=== PATIENT | female | born 1970 | race Caucasian/White ===

== ENCOUNTER → 2020-03-01 | Outpatient (CLI) | payer OTHER | END | disposition home or self-care (01) | LOC: LAB 10:57 | PROVIDERS: ATTEND Internal Medicine Pulmonary Disease | DX: Z20.828 Contact with and (suspected) exposure to other viral communicable diseases (principal) | CPT/HCPCS: 36415; 99001; U0001 ==

== ENCOUNTER 2020-06-01 02:51 | Emergency (ER) | payer OTHER ==
[~2020-06-01] VITALS: Ht 175.3 cm; Wt 202.0 kg
--- NOTE | 2020-06-01 03:15 | PHYS DOC ---
General Adult EDM: Chief Complaint: ABDOMINAL PAIN HPI: HPI: Patient is a 50 year old female presents with the chief complaint of right upper quadrant abdominal pain. Onset of symptoms yesterday. Right upper quadrant is tender to palpation and abdomen is distended. Initial associated symptoms included nausea and vomiting with diarrhea starting tonight. Past surgical history include cystectomy, appendectomy, and hysterectomy. Review of Systems: Review of Systems: Constitutional: Denies fever or chills. [] Eyes: Denies change in visual acuity. [] HENT: Denies nasal congestion or sore throat. [] Respiratory: Denies cough or shortness of breath. [] Cardiovascular: Denies chest pain or edema. [] GI: Positive abdominal pain positive nausea positive vomiting positive diarr hea : Denies dysuria. [] Musculoskeletal: Positive abdominal pain positive denies musculoskeletal pain Integument: Denies rash. [] Neurologic: Denies headache, focal weakness or sensory changes. [] Endocrine: Denies polyuria or polydipsia. [] Lymphatic: Denies swollen glands. [] Psychiatric: Denies depression or anxiety. [] Heart Score: Risk Factors: Risk Factors: DM, Current or recent (<one month) smoker, HTN, HLP, family history of CAD, obesity. Risk Scores: Score 0 - 3: 2.5% MACE over next 6 weeks - Discharge Home Score 4 - 6: 20.3% MACE over next 6 weeks - Admit for Clinical Observation Score 7 - 10: 72.7% MACE over next 6 weeks - Early Invasive Strategies Current Medications: Current Medications Medications (Trade) Dose Ordered Sig/Tim Start Time Stop Time Status Last Admin Dose Admin Ondansetron HCl (Zofran) 4 mg 1X ONCE 06/01/20 03:00 06/01/20 03:01 UNV Physical Exam: PE: Constitutional: Well developed, well nourished, no acute distress, mild-toxic appearance. [] HENT: Normocephalic, atraumatic, bilateral external ears normal, nose normal. [] Eyes: EOMI, conjunctiva normal, no discharge. [] Neck: Normal range of motion, Cardiovascular:Heart rate regular rhythm, Lungs & Thorax: No respiratory distress Abdomen: soft, tenderness to palpation right upper quadrant, Skin: Warm, dry, no erythema, no rash. [] Back: Normal range of motion Extremities: No tenderness, no cyanosis, no clubbing, ROM intact Neurologic: Alert and oriented X 3, normal motor function, normal sensory function, no focal deficits noted. [] Psychologic: Affect normal, judgement normal, mood normal. [] EKG: EKG: [] Radiology/Procedures: Radiology/Procedures: [] Impression: ]IMPRESSION: 1. Previous cholecystectomy. 2. Left intrarenal calculus, no ureteral calculus or hydronephrosis. 3. Mild wall thickening of the colon possible colitis. 4. Diverticulosis without acute diverticulitis. 5. No small bowel obstruction. Course & Med Decision Making: Course & Med Decision Making Pertinent Labs and Imaging studies reviewed. (See chart for details) []All reseults discussed with patient. Treatment with bently and zofran with improvement. Will discharge home on bentyl, cipro, flagyl, zofran Dragon Disclaimer: Shahana Disclaimer: This electronic medical record was generated, in whole or in part, using a voice recognition dictation system. Departure Departure Impression: Primary Impression: Colitis Disposition: 01 HOME, SELF-CARE Condition: STABLE Referrals: VINCENZO DOBBINS (PCP) Patient Instructions: Colitis Scripts Ondansetron Hcl (ZOFRAN) 4 Mg Tablet 1 TAB PO Q6HRS, #20 TAB Prov: MEGHNA MEADOWS I DO 06/01/20 Ciprofloxacin Hcl (CIPRO) 500 Mg Tablet 1 TAB PO BID for 7 Days, #14 TAB 0 Refills Prov: MEGHNA MEADOWS I DO 06/01/20 Metronidazole (FLAGYL) 500 Mg Tablet 1 TAB PO BID, #14 TAB Prov: MEGHNA MEADOWS I DO 06/01/20 Dicyclomine Hcl (DICYCLOMINE HCL) 20 Mg Tablet 20 MG PO QID, #20 TAB Prov: MEGHNA MEADOWS I DO 06/01/20 Justicifation of Admission Dx: Justifications for Admission: Justification of Admission Dx: N/A MEGHNA MEADOWS DO Jun 01, 2020 03:15
[2020-06-01 03:25] LABS: BASO % 0 % (0-3); EOS % 0 % (0-3); HEMATOCRIT 40.5 % (36.0-47.0); HEMOGLOBIN 13.9 g/dL (12.0-15.5); LYMPH # 2.6 x10^3/uL (1.0-4.8); LYMPH % 34 % (24-48); MEAN CORPUSCULAR HEMOGLOBIN 30 pg (25-35); MEAN CORPUSCULAR HGB CONC 34 g/dL (31-37); MEAN CORPUSCULAR VOLUME 88 fL (79-100); MONO # 0.4 x10^3/uL (0.0-1.1); MONO % 6 % (0-9); NEUT # 4.5 x10^3/uL (1.8-7.7); NEUT % 59 % (31-73); PLATELET COUNT 210 x10^3/uL (140-400); RED CELL DISTRIBUTION WIDTH 13.6 % (11.5-14.5); WHITE BLOOD COUNT 7.5 x10^3/uL (4.0-11.0)
[2020-06-01 03:33] LABS: CALCIUM 8.9 mg/dL (8.5-10.1); CREATININE 0.9 mg/dL (0.6-1.0); GFR 66.8; POTASSIUM 3.8 mmol/L (3.5-5.1)
[2020-06-01 03:38] LABS: ALBUMIN 4.1 g/dL (3.4-5.0); ALBUMIN/GLOBULIN RATIO 1.5 (1.0-1.7); TOTAL BILIRUBIN 0.4 mg/dL (0.2-1.0); TOTAL PROTEIN 6.8 g/dL (6.4-8.2)
[2020-06-01] MEDS ORDERED: CONTRAST GIVEN. MC PRN (03:45)
[2020-06-01] MEDS ORDERED: ONDANSETRON PF 4 MG/2 ML VIAL. IVP ONE ×2 (04:00)
[2020-06-01] MEDS ORDERED: DICYCLOMINE 20 MG/2 ML VIAL. IM ONE (04:00)
[2020-06-01] MEDS ORDERED: IV NORMAL SALINE 1000ML BAG 1,000 ML IV ONE (04:00)
[2020-06-01] MEDS ORDERED: IOHEXOL 300 MG/ML 100ML VIAL. IV ONE (04:00)
--- NOTE | 2020-06-01 04:24 | RAD ---
CT abdomen pelvis with contrast. HISTORY: Right upper quadrant abdominal pain CT scan the abdomen pelvis was done using 75 mL Omnipaque 300 contrast. Lung bases are clear. There is no effusion. Liver is normal in appearance. Patient's had a cholecystectomy. Spleen and adrenal glands are normal. A pancreatic lesion is not identified. There is no mass or hydronephrosis in the kidneys. There is a 4 mm calculus in the lower left kidney. A ureteral calculus is not identified. There is no adenopathy. Small bowel pattern is normal. Patient's had a hysterectomy. There is wall thickening of the colon possible colitis. There is diverticulosis of the colon without diverticulitis. There is degenerative disc disease in the lower lumbar spine. The appendix is not identified. IMPRESSION: 1. Previous cholecystectomy. 2. Left intrarenal calculus, no ureteral calculus or hydronephrosis. 3. Mild wall thickening of the colon possible colitis. 4. Diverticulosis without acute diverticulitis. 5. No small bowel obstruction. PQRS Compliance Statement: One or more of the following individualized dose reduction techniques were utilized for this examination: 1. Automated exposure control 2. Adjustment of the mA and/or kV according to patient size 3. Use of iterative reconstruction technique Electronically signed by: Eddie Lira MD (06/01/2020 4:21 AM) [id number]
[2020-06-01 04:42] LABS: BILIRUBIN,URINE NEGATIVE (NEG); CLARITY,URINE CLEAR; COLOR,URINE YELLOW; NITRITE,URINE NEGATIVE (NEG); PROTEIN,URINE NEGATIVE (NEG-TRACE); UROBILINOGEN,URINE 0.2 mg/dL (0.2 mg/dL)
[2020-06-01 04:49] LABS: SQUAMOUS EPITHELIAL CELL,UR MOD /LPF
[2020-06-01 04:50] LABS: AMORPHOUS SEDIMENT,UR PRESENT /HPF; BACTERIA,URINE MODERATE /HPF (0-FEW)
[2020-06-01] MEDS ORDERED: CIPR500T94 PO (04:56)
[2020-06-01] MEDS ORDERED: ONDA4TAB7 PO (04:56)
[2020-06-01] MEDS ORDERED: METR500T PO (04:56)
[2020-06-01] MEDS ORDERED: DICY20TA3 PO (04:56)
[2020-06-01 05:29] VITALS: BP 105/55
== END 2020-06-01 06:11 | disposition home or self-care (01) ==
LOC: ER 02:51
DX: K52.9 Noninfective gastroenteritis and colitis, unspecified (principal); Z90.89 Acquired absence of other organs; Z90.710 Acquired absence of both cervix and uterus; Z90.6 Acquired absence of other parts of urinary tract
CPT/HCPCS: 36415; 74177; 80053; 81001; 83690; 85025; 87086; 96361; 96372; 96374; 96376; 99285; J0500; J2405; J7030; Q9967

== ENCOUNTER → 2020-09-27 | Outpatient (CLI) | payer OTHER ==
[~2020-09-27] MED LIST: CIPR500T94 PO; DICY20TA3 PO; METR500T PO; ONDA4TAB7 PO
== END ==
LOC: LAB 18:20
PROVIDERS: ATTEND Internal Medicine Pulmonary Disease
DX: R05 Cough (principal); R09.81 Nasal congestion; Z20.828 Contact with and (suspected) exposure to other viral communicable diseases
CPT/HCPCS: U0003

== ENCOUNTER 2020-11-29 05:54 | Emergency (ER) | payer OTHER ==
[~2020-11-29] VITALS: Ht 175.3 cm; Wt 90.0 kg
--- NOTE | 2020-11-29 05:58 | ED.ADGEN ---
Past Medical History Past Medical History: Anxiety, Gallstones Additional Past Medical Histor: ADHD, NECROSIS IN HIPS Past Surgical History: Appendectomy, Cholecystectomy, , Hysterectomy, Tonsillectomy Additional Past Surgical Histo: BX HAND GANGLION CYST REMOVAL, PARTIAL OO PHORECTOMY, ABD WALL RESECTION Smoking Status: Current Some Day Smoker Alcohol Use: Rarely General Adult EDM: Chief Complaint: RIB PAIN HPI: HPI: Patient is a 50 year old [f__sex] who presents with [] Review of Systems: Review of Systems: Constitutional: Denies fever or chills. [] Eyes: Denies change in visual acuity. [] HENT: Denies nasal congestion or sore throat. [] Respiratory: Denies cough or shortness of breath. [] Cardiovascular: Denies chest pain or edema. [] GI: Denies abdominal pain, nausea, vomiting, bloody stools or diarrhea. [] : Denies dysuria. [] Musculoskeletal: Denies back pain or joint pain. [] Integument: Denies rash. [] Neurologic: Denies headache, focal weakness or sensory changes. [] Endocrine: Denies polyuria or polydipsia. [] Lymphatic: Denies swollen glands. [] Psychiatric: Denies depression or anxiety. [] Allergies: Allergies: Allergies Coded Allergies Type Severity Reaction Last Updated Verified theophylline Allergy Severe 06/01/20 Yes NSAIDS (Non-Steroidal Anti-Inflamma Allergy Intermediate 06/01/20 Yes clarithromycin Allergy Intermediate 06/01/20 Yes codeine Allergy Intermediate 06/01/20 Yes morphine Allergy Intermediate 06/01/20 Yes Physical Exam: PE: Constitutional: Well developed, well nourished, no acute distress, non-toxic appearance. [] HENT: Normocephalic, atraumatic, bilateral external ears normal, oropharynx moist, no oral exudates, nose normal. [] Eyes: PERRLA, EOMI, conjunctiva normal, no discharge. [] Neck: Normal range of motion, no tenderness, supple, no stridor. [] Cardiovascular:Heart rate regular rhythm, no murmur [] Lungs & Thorax: Bilateral breath sounds clear to auscultation [] Abdomen: Bowel sounds normal, soft, no tenderness, no masses, no pulsatile masses. [] Skin: Warm, dry, no erythema, no rash. [] Back: No tenderness, no CVA tenderness. [] Extremities: No tenderness, no cyanosis, no clubbing, ROM intact, no edema. [] Neurologic: Alert and oriented X 3, normal motor function, normal sensory function, no focal deficits noted. [] Psychologic: Affect normal, judgement normal, mood normal. [] Current Patient Data: Vital Signs: Vital Signs Date Time Temp Pulse Resp B/P (MAP) Pulse Ox O2 Delivery O2 Flow Rate FiO2 11/29/20 06:08 98.1 79 16 131/88 (102) 96 Room Air 98.1 EKG: EKG: [] Heart Score: Risk Factors: Risk Factors: DM, Current or recent (<one month) smoker, HTN, HLP, family history of CAD, obesity. Risk Scores: Score 0 - 3: 2.5% MACE over next 6 weeks - Discharge Home Score 4 - 6: 20.3% MACE over next 6 weeks - Admit for Clinical Observation Score 7 - 10: 72.7% MACE over next 6 weeks - Early Invasive Strategies Radiology/Procedures: Radiology/Procedures: [][facility] [address] [place] [address] IMAGING REPORT Signed PATIENT: FROY VÁSQUEZ ACCOUNT: [id number] : 1970 LOCATION: ER AGE: 50 SEX: F EXAM STATUS: REG ER ORD. PHYSICIAN: LEIDA HANSON DO REASON: trauma/right sided PROCEDURE: CT CHEST WO CONTRAST PQRS Compliance Statement: One or more of the following individualized dose reduction techniques were utilized for this examination: 1. Automated exposure control 2. Adjustment of the mA and/or kV according to patient size 3. Use of iterative reconstruction technique CT THORAX WO 11/29/2020 6:18 AM Indication: Right-sided trauma COMPARISON: None available. TECHNIQUE: Multiple axial CT images of the chest were obtained without intravenous contrast. Coronal and sagittal reformats are provided. FINDINGS: 4 mm subpleural nodule identified along the lateral right upper lobe (series 3, image 13). Small posterior fat-containing right diaphragmatic hernia. There is a 5 mm subpleural solid noncalcified pulmonary nodule along the posterior left upper lobe (series 3, image 8). There is a nodular opacity in the inferior lingula measuring 8 mm (series 3, image 38). Subsegmental atelectasis identified at the left lung base. No pleural effusions, pulmonary vascular congestion or pneumothorax. Thyroid gland is normal in appearance. Prevascular periaortic lymph node measures 5 mm by short axis. No pathologically enlarged thoracic lymph nodes. Heart size within normal limits. Thoracic aorta is normal in course and caliber measuring up to 3.9 cm along the ascending segment. Versus portions of the upper abdomen are normal with exception of prior cholecystectomy changes. Clavicles, scapula and sternum appear intact. There is a partially healed anterior right sixth rib fracture. Minimal sclerosis and contour deformity involving the posterior ninth and 10th ribs could represent nondisplaced fractures. IMPRESSION: 1. Minimal contour deformity and sclerosis involving the posterior ninth and 10th ribs could represent an osseous fractures. Correlate with point tenderness. 2. Solid noncalcified pulmonary nodules measure up to 8 mm in the inferior lingula. Fleischner guidelines for incidentally detected pulmonary nodules suggests CT chest at 6-12 months, then consider CT at 18-24 months for single solid noncalcified pulmonary nodule 6-8 mm in size. 3. Partially healed anterior right sixth rib fracture. Electronically signed by: Henrik Serrano MD (11/29/2020 6:53 AM) [facility] DICTATED and SIGNED BY: HENRIK SERRANO MD DATE: 11/29/20 [id number] 0 Course & Med Decision Making: Course & Med Decision Making Pertinent Labs and Imaging studies reviewed. (See chart for details) [] Dragon Disclaimer: Dragzaynab Disclaimer: This electronic medical record was generated, in whole or in part, using a voice recognition dictation system. Departure Departure Impression: Primary Impression: Chest wall contusion Additional Impression: Pulmonary nodules Disposition: 01 DC HOME SELF CARE/HOMELESS Condition: STABLE Referrals: VINCENZO DOBBINS (PCP) Patient Instructions: Blunt Chest Trauma, Pulmonary Nodule Problem Qualifiers LEIDA HANSON DO Nov 29, 2020 05:58
[2020-11-29 06:08] VITALS: BP 131/88
--- NOTE | 2020-11-29 06:55 | RAD ---
PQRS Compliance Statement: One or more of the following individualized dose reduction techniques were utilized for this examinat ion: 1. Automated exposure control 2. Adjustment of the mA and/or kV according to patient size 3. Use of iterative reconstruction technique CT THORAX WO 11/29/2020 6:18 AM Indication: Right-sided trauma COMPARISON: None available. TECHNIQUE: Multiple axial CT images of the chest were obtained without intravenous contrast. Coronal and sagittal reformats are provided. FINDINGS: 4 mm subpleural nodule identified along the lateral right upper lobe (series 3, image 13). Small post erior fat-containing right diaphragmatic hernia. There is a 5 mm subpleural solid noncalcified pulmon lilibeth nodule along the posterior left upper lobe (series 3, image 8). There is a nodular opacity in the inferior lingula measuring 8 mm (series 3, image 38). Subsegmental atelectasis identified at the lef t lung base. No pleural effusions, pulmonary vascular congestion or pneumothorax. Thyroid gland is no rmal in appearance. Prevascular periaortic lymph node measures 5 mm by short axis. No pathologically enlarged thoracic lymph nodes. Heart size within normal limits. Thoracic aorta is normal in course an d caliber measuring up to 3.9 cm along the ascending segment. Versus portions of the upper abdomen ar e normal with exception of prior cholecystectomy changes. Clavicles, scapula and sternum appear intac t. There is a partially healed anterior right sixth rib fracture. Minimal sclerosis and contour defor mity involving the posterior ninth and 10th ribs could represent nondisplaced fractures. IMPRESSION: 1. Minimal contour deformity and sclerosis involving the posterior ninth and 10th ribs could represen t an osseous fractures. Correlate with point tenderness. 2. Solid noncalcified pulmonary nodules measure up to 8 mm in the inferior lingula. Fleischner guidel lashonda for incidentally detected pulmonary nodules suggests CT chest at 6-12 months, then consider CT a t 18-24 months for single solid noncalcified pulmonary nodule 6-8 mm in size. 3. Partially healed anterior right sixth rib fracture. Electronically signed by: Tita Jaimes MD (11/29/2020 6:53 AM) [facility]
== END 2020-11-29 07:24 | disposition home or self-care (01) ==
LOC: ER 05:54
DX: S20.211A Contusion of right front wall of thorax, initial encounter (principal); R91.1 Solitary pulmonary nodule; F90.9 Attention-deficit hyperactivity disorder, unspecified type; F17.200 Nicotine dependence, unspecified, uncomplicated; Z88.5 Allergy status to narcotic agent; Z88.6 Allergy status to analgesic agent; Z88.1 Allergy status to other antibiotic agents; Z88.8 Allergy status to other drugs, medicaments and biological substances; W18.39XA Other fall on same level, initial encounter; Y93.89 Activity, other specified; Y92.89 Other specified places as the place of occurrence of the external cause; Y99.8 Other external cause status
CPT/HCPCS: 71250; 99284-25